=== PATIENT | female | born 1980 | race Hispanic/Latino ===

== ENCOUNTER 2022-05-16 10:09 | Day surgery (SDC) | payer OTHER ==
[2022-05-16 11:27] VITALS: BMI 32.9
[2022-05-16] MEDS ORDERED: hydrALAZINE 20 MG/ML VIAL SLOW IVP PRN (11:37)
[2022-05-16 12:51] LABS: #Eosinphils 0.1 10x3/uL (0.0-0.5); #Monocytes 0.5 10x3/uL (0.0-1.1); #Neutrophils 6.5 10x3/uL (1.5-8.4); %Basophils 0.2 % (0.0-2.0); %Eosinophils 1.2 % (0.0-6.0); %Lymphocytes 22.8 % (18.0-47.0); %Monocytes 5.6 % (0.0-10.0); %Neutrophils 69.7 % (40.0-75.0); Hemoglobin 11.7 g/dL (12.0-15.5); Mean Corpuscular HGB CONC 33.3 g/dL (32.0-36.0); Mean Corpuscular Hemoglobin 26.2 pg (27.0-33.0); Mean Corpuscular Volume 78.7 fl (81.6-98.3); Mean Platelet Volume 11.7 fl (7.4-10.4); Platelet Count 203 10x3/uL (150-450); RBC Distribution Width 15.6 % (11.5-14.5); Red Blood Cell (RBC) Count 4.46 10x6/uL (3.90-5.03); White Blood Cell (WBC) Count 9.3 10x3/uL (3.5-10.5)
[2022-05-16 12:57] LABS: Bilirubin Neg (Negative); Blood, Urine Negative (Negative); Clarity Clear (Clear); Glucose, Urine (Dipstick) Normal (Negative); Ketone, Urine Negative (Negative); Leukocyte Negative (Negative); Nitrite Negative (Negative); Protein, Urine (Dipstick) Negative (Neg-Trace); Urobilinogen Normal mg/dL (Less than 2); pH, Urine 6.5 (5.0-9.0)
[2022-05-16 13:17] LABS: ALT (SGPT) 10 U/L (8-55); AST (SGOT) 14 U/L (5-34); Albumin 3.2 g/dL (3.5-5.0); Alkaline Phosphatase 120 U/L (40-110); Anion Gap 12 mmol/L (10-20); BUN (Urea Nitrogen) 16 mg/dL (7.0-18.7); Bilirubin, Total 0.3 mg/dL (0.2-1.2); Calc. Creatinine Clearance 171 mL/min (70-130); Calcium 9.3 mg/dL (7.8-10.44); Carbon Dioxide 19 mmol/L (22-29); Chloride 110 mmol/L (98-107); Estimated GFR 116; Globulin 3.1 g/dL (2.4-3.5); Glucose 87 mg/dL (70-105); Potassium 3.8 mmol/L (3.5-5.1); Protein, Total 6.3 g/dL (6.0-8.3); Sodium 137 mmol/L (136-145)
== END 2022-05-16 14:10 | disposition home or self-care (01) ==
LOC: CSHLD/OP 10:09
PROVIDERS: ATTEND Family Medicine
DX: O26.893 Other specified pregnancy related conditions, third trimester (principal); R10.2 Pelvic and perineal pain; Z3A.38 38 weeks gestation of pregnancy; O24.419 Gestational diabetes mellitus in pregnancy, unspecified control; O16.3 Unspecified maternal hypertension, third trimester; Z79.4 Long term (current) use of insulin; Z79.899 Other long term (current) drug therapy; Z98.890 Other specified postprocedural states
CPT/HCPCS: 36415; 80053; 81003; 85025; 99284

== ENCOUNTER 2022-05-17 12:15 | Day surgery (SDC) | payer OTHER | END 2022-05-17 15:25 | disposition home health service, planned readmission (86) | LOC: CSHLD/OP 12:15 | PROVIDERS: ATTEND Family Medicine | DX: O24.414 Gestational diabetes mellitus in pregnancy, insulin controlled (principal); Z3A.36 36 weeks gestation of pregnancy; Z79.4 Long term (current) use of insulin | CPT/HCPCS: 76815; 76819; 99282 ==

== ENCOUNTER 2022-05-24 12:04 | Day surgery (SDC) | payer OTHER ==
[2022-05-24 12:31] VITALS: BMI 38.0
== END 2022-05-24 14:10 | disposition home or self-care (01) ==
LOC: EDBD → CSHLD/OP 12:04
PROVIDERS: ATTEND Family Medicine
DX: O24.414 Gestational diabetes mellitus in pregnancy, insulin controlled (principal); Z3A.37 37 weeks gestation of pregnancy; Z79.4 Long term (current) use of insulin
CPT/HCPCS: 76819

== ENCOUNTER 2022-05-28 18:00 | Inpatient (IN) | payer MEDICAID, OTHER, SELFPAY ==
[2022-05-29] MEDS ORDERED: hydrALAZINE 20 MG/ML VIAL SLOW IVP PRN ×2 (17:53→18:15)
[2022-05-29] MEDS ORDERED: Lidocaine 1% (PF) 30 ML VIAL SC PRN (17:53)
[2022-05-29] MEDS ORDERED: HYDROcodone/Acetaminophen 5/325 mg Tablet PO PRN (17:53)
[2022-05-29] MEDS ORDERED: Diphenoxylate HCl/Atropine Tablet PO PRN (17:53)
[2022-05-29] MEDS ORDERED: Misoprostol 200 MCG TAB PR PRN (17:53)
[2022-05-29] MEDS ORDERED: Butorphanol Tartrate 1 MG/ML VIAL SLOW IVP PRN (17:53)
[2022-05-29] MEDS ORDERED: Carboprost 250 MCG/ML AMP IM PRN (17:53)
[2022-05-29] MEDS ORDERED: Methylergonovine 0.2 MG/ML VIAL IM PRN (17:53)
[2022-05-29] MEDS ORDERED: Acetaminophen 500 MG TAB PO PRN (17:53)
[2022-05-29] MEDS ORDERED: Promethazine HCl 25 MG/ML VIAL IM PRN (17:53)
[2022-05-29] MEDS ORDERED: Ondansetron PF 4 MG/2 ML Vial IVP PRN (17:53)
[2022-05-29] MEDS ORDERED: Ibuprofen 800 MG TAB PO PRN (17:53)
[2022-05-29 17:56] VITALS: BMI 31.8
[2022-05-29] MEDS ORDERED: Calcium Gluc 4.6 MEQ/10 ML (100 MG/ML) SLOW IVP PRN (18:15)
[2022-05-29] MEDS ORDERED: Lorazepam 2 MG/ML VIAL SLOW IVP PRN (18:15)
[2022-05-29] MEDS ORDERED: Labetalol HCl 100 MG/20 ML VIAL SLOW IVP PRN ×2 (18:15)
[2022-05-29] MEDS ORDERED: Magnesium Sulfate 20 gm/500 ml 20 GM/500 ML BAG ONE (18:20)
[2022-05-29] MEDS ORDERED: Labetalol HCl 100 MG TAB PO SCH (18:30)
[2022-05-29 18:32] LABS: Hemoglobin 11.5 g/dL (12.0-15.5); Mean Corpuscular HGB CONC 33.7 g/dL (32.0-36.0); Mean Corpuscular Hemoglobin 26.4 pg (27.0-33.0); Mean Corpuscular Volume 78.2 fl (81.6-98.3); Mean Platelet Volume 11.9 fl (7.4-10.4); Platelet Count 191 10x3/uL (150-450); Red Blood Cell (RBC) Count 4.36 10x6/uL (3.90-5.03); White Blood Cell (WBC) Count 9.3 10x3/uL (3.5-10.5)
[2022-05-29] MEDS: Misoprostol 100 MCG TAB PO SCH ×2 (18:35→22:40)
[2022-05-29] MEDS: hydrALAZINE 20 MG/ML VIAL SLOW IVP PRN (18:35)
[2022-05-29] MEDS: Lactated Ringer's 1,000 ML IV SCH (18:35)
[2022-05-29 19:01] LABS: Syphilis Antibody Nonreactive (Nonreactive); Syphilis Antibody Index 0.03 S/CO (<1.00 Non-Reactive)
[2022-05-29 19:03] LABS: Hep B Surf Ag Non-Reactive S/CO (NonReactive)
[2022-05-29 20:01] LABS: SARS-CoV-2 NAA Rapid Test Not Detected (NotDetected)
[2022-05-29 20:44] LABS: Glucose 78 mg/dL (70-105)
[2022-05-29] MEDS: NIFEdipine XL 30 MG TAB PO SCH (21:08)
[2022-05-30] MEDS: Lactated Ringer's 1,000 ML IV SCH (02:35)
[2022-05-30] MEDS: Magnesium Sulfate 20 gm/500 ml 20 GM/500 ML BAG IVPB SCH ×3 (03:08→23:25)
[2022-05-30] MEDS: Misoprostol 100 MCG TAB PO SCH (03:22)
[2022-05-30] MEDS ORDERED: HumaLOG 300 UNITS/3 ML VIAL SC SCH (06:00)
[2022-05-30] MEDS: NS w/ Oxytocin 30 units 500 ML IV SCH (12:56)
[2022-05-30] MEDS: NIFEdipine XL 30 MG TAB PO SCH (21:34)
[2022-05-31 08:15] LABS: Anion Gap 18 mmol/L (10-20); BUN (Urea Nitrogen) 9 mg/dL (7.0-18.7); Calc. Creatinine Clearance 162 mL/min (70-130); Calcium 7.5 mg/dL (7.8-10.44); Carbon Dioxide 15 mmol/L (22-29); Chloride 102 mmol/L (98-107); Estimated GFR 114; Glucose 107 mg/dL (70-105); Magnesium 6.3 mg/dL (1.6-2.6); Potassium 3.7 mmol/L (3.5-5.1); Sodium 131 mmol/L (136-145)
[2022-05-31] MEDS ORDERED: Famotidine/PF 20 mg/2ml Vial SLOW IVP PRN (16:18)
[2022-05-31] MEDS ORDERED: Bicitra 30 ML UDCUP PO PRN (16:18)
[2022-05-31] MEDS ORDERED: CEFAZOLIN 2 GM in Sodium Chloride 0.9% 100 ML IVPB SCH (16:30)
[2022-05-31] MEDS ORDERED: Azithromycin 500 MG in Sodium Chloride 0.9% 250 ML 250 ML IVPB SCH (16:30)
[2022-05-31] MEDS ORDERED: Famotidine/PF 20 mg/2ml Vial ONE (16:33)
[2022-05-31] MEDS: hydrALAZINE 20 MG/ML VIAL SLOW IVP PRN (16:35)
[2022-05-31] MEDS ORDERED: Misoprostol 200 MCG TAB ONE (16:49)
[2022-05-31] MEDS ORDERED: Carboprost 250 MCG/ML AMP ONE (16:49)
[2022-05-31] MEDS ORDERED: Tranexamic Acid 1,000 MG/10 ML VIAL ONE (16:50)
[2022-05-31] MEDS: NS w/ Oxytocin 30 units 500 ML IV SCH (18:45)
[2022-05-31] MEDS ORDERED: Oxytocin 10 UNITS/ML VIAL ONE (19:21)
[2022-05-31] MEDS ORDERED: Dexamethasone 4 MG TAB ONE (19:21)
[2022-05-31] MEDS ORDERED: Ondansetron PF 4 MG/2 ML Vial ONE (19:21)
[2022-05-31] MEDS ORDERED: Morphine PF 10 MG/10 ML VIAL ONE (19:21)
[2022-05-31] MEDS ORDERED: Ketorolac Tromethamine 30 MG/ML VIAL ONE (19:21)
[2022-05-31] MEDS: Magnesium Sulfate 20 gm/500 ml 20 GM/500 ML BAG IVPB SCH (20:41)
[2022-05-31] MEDS ORDERED: Lanolin Ointment 7 GM TUBE TOP PRN (23:11)
[2022-05-31] MEDS ORDERED: Ondansetron PF 4 MG/2 ML Vial IVP PRN (23:11)
[2022-05-31] MEDS ORDERED: Misoprostol 200 MCG TAB PR PRN (23:11)
[2022-05-31] MEDS ORDERED: Boostrix 0.5 ML (Tdap) VIAL (>/=7 yrs of age) IM ONE (23:11)
[2022-05-31] MEDS ORDERED: Simethicone Chewable 80 MG TAB PO PRN (23:11)
[2022-05-31] MEDS ORDERED: diphenhydrAMINE 25 MG CAP PO PRN (23:11)
[2022-05-31] MEDS ORDERED: NS w/ Oxytocin 30 units 500 ML IV SCH (23:11)
[2022-05-31] MEDS ORDERED: hydrALAZINE 20 MG/ML VIAL SLOW IVP PRN (23:11)
[2022-05-31] MEDS ORDERED: Ibuprofen 800 MG TAB PO SCH (23:15)
[2022-05-31] MEDS ORDERED: Ferrous Sulfate 325 MG TAB PO SCH (23:15)
[2022-06-01] MEDS: NIFEdipine XL 30 MG TAB PO SCH (02:18)
[2022-06-01 05:19] LABS: Hemoglobin 10.6 g/dL (12.0-15.5); Mean Corpuscular HGB CONC 33.3 g/dL (32.0-36.0); Mean Corpuscular Hemoglobin 26.5 pg (27.0-33.0); Mean Corpuscular Volume 79.5 fl (81.6-98.3); Mean Platelet Volume 11.2 fl (7.4-10.4); Platelet Count 201 10x3/uL (150-450); RBC Distribution Width 15.9 % (11.5-14.5); White Blood Cell (WBC) Count 13.5 10x3/uL (3.5-10.5)
[2022-06-01] MEDS: Magnesium Sulfate 20 gm/500 ml 20 GM/500 ML BAG IVPB SCH (06:39)
[2022-06-01] MEDS: Ibuprofen 800 MG TAB PO SCH ×3 (06:48→21:28)
[2022-06-01] MEDS: Ferrous Sulfate 325 MG TAB PO SCH ×2 (15:54→21:30)
[2022-06-01] MEDS: Prenatal Vitamin 1 TAB PO SCH (15:55)
[2022-06-01] MEDS: HYDROcodone/Acetaminophen 5/325 mg Tablet PO PRN (18:55)
[2022-06-01] MEDS: Lactated Ringer's 1,000 ML IV SCH ×4 (21:32→21:35)
[2022-06-01] MEDS: Misoprostol 100 MCG TAB PO SCH (21:32)
[2022-06-02] MEDS: HYDROcodone/Acetaminophen 5/325 mg Tablet PO PRN ×4 (00:48→20:05)
[2022-06-02] MEDS: Ibuprofen 800 MG TAB PO SCH ×3 (05:22→21:54)
[2022-06-02] MEDS: Ferrous Sulfate 325 MG TAB PO SCH ×2 (07:28→21:53)
[2022-06-02] MEDS: Prenatal Vitamin 1 TAB PO SCH (08:47)
[2022-06-02] MEDS: NIFEdipine XL 30 MG TAB PO SCH (21:54)
[2022-06-03] MEDS: Ibuprofen 800 MG TAB PO SCH ×2 (05:48→13:43)
[2022-06-03] MEDS: Ferrous Sulfate 325 MG TAB PO SCH (07:09)
[2022-06-03 08:01] VITALS: TEMP 98
[2022-06-03] MEDS ORDERED: Labetalol HCl 200 MG TAB PO SCH (09:00)
[2022-06-03] MEDS: Prenatal Vitamin 1 TAB PO SCH (09:25)
[2022-06-03 13:45] VITALS: BP 147/79
== END 2022-06-03 14:50 | disposition home or self-care (01) | DRG 788 ==
LOC: EDBD → CSHLD 05-29 17:18 → CSHANTE 06-01 20:57
PROVIDERS: ADMIT Family Medicine; ATTEND Family Medicine
PROC: 10D00Z1 Extraction of Products of Conception, Low, Open Approach (ICD-10-PCS; principal; 2022-05-31)
PROC: 0W3R7ZZ Control Bleeding in Genitourinary Tract, Via Natural or Artificial Opening (ICD-10-PCS; 2022-05-31)
PROC: 3E033VJ Introduction of Other Hormone into Peripheral Vein, Percutaneous Approach (ICD-10-PCS; 2022-05-31)
PROC: 0T9B70Z Drainage of Bladder with Drainage Device, Via Natural or Artificial Opening (ICD-10-PCS; 2022-05-31)
PROC: 3E0P7VZ Introduction of Hormone into Female Reproductive, Via Natural or Artificial Opening (ICD-10-PCS; 2022-05-31)
DX: O14.14 Severe pre-eclampsia complicating childbirth (principal); O62.1 Secondary uterine inertia; Z3A.38 38 weeks gestation of pregnancy; Z37.0 Single live birth; O61.0 Failed medical induction of labor; O72.1 Other immediate postpartum hemorrhage; Z20.822 Contact with and (suspected) exposure to COVID-19; O24.429 Gestational diabetes mellitus in childbirth, unspecified control
CPT/HCPCS: 36415; 36416; 51702; 80048; 82947; 83735; 85014; 85018; 85027; 86780; 86850; 86900; 86901; 87340; J0360; J0456; J1815; J1885; J2274; J2405; J2590; J3475; J3490; J7050; J7120; J8540; S0028; U0002